=== PATIENT | male | born 1990 | race Caucasian/White ===

== ENCOUNTER 2016-07-11 10:06 | Emergency (ER) | payer SELFPAY ==
--- NOTE | ~2016-07-11 | US113 ---
[facility]. [facility] A Service of [facility] & [facility] RADIOLOGY TEXT RESULTS PATIENT: TONY DAMON LOCATION: SED : [birth year] UNIT #: [id number] AGE: [address]: Ramakrishna Gaytan MD SEX: M ORDER DR: [id number] [address] [id number] MR#: [id number] Acc #: [id number] NAME: TONY DAMON : 1990 SEX: M STUDY DATE/TIME: 07/11/2016 10:54 UNIT: SED ROOM: STUDY DESCRIPTION: US Scrotal Duplex Complete Attending Physician: Ramakrishna Gaytan M.D. Ordering Physician: Ramakrishna Gaytan M.D. Primary Care Physician: Primary Care Physician No MEDICAL IMAGING REPORT This report is preliminary unless electronic signature is present. EXAM Scrotal ultrasound. Date is 07/11/2016. HISTORY Testicular pain 5-hour ago. More pain with walking and standing. FINDINGS Real-time ultrasonography of the scrotal contents performed. Jimenez-scale, color Doppler, Doppler pulse-wave interrogation utilized. Right testis measures 3.28 cm x 2.06 cm x 5.04 cm. Normal in contour and echotexture. No mass lesion. Arterial and venous flow seen in the right testis. Right epididymal head shows small cyst measuring 4.4 mm x 3.9 mm x 2.3 mm. Trace fluid right hemiscrotum. The left testis measures 3.40 cm x 2.00 cm x 5.28 cm. Normal in contour and echotexture with no mass lesion seen. Trace fluid left hemiscrotum. The left epididymis contains small cyst measuring up to 2.7 mm in maximum diameter. Ultrasonography of the bilateral inguinal canal regions is unremarkable. IMPRESSION 1. Testes are normal in appearance. Arterial and venous flow in the bilateral testes. 2. Small epididymal head cysts bilaterally. See measurements above. 3. Trace amount of fluid in the bilateral hemiscrotum. 4. Bilateral inguinal canal region is sonographically unremarkable. 1. Dictated by... Cabrera Suh M.D. THIS IS AN ELECTRONICALLY VERIFIED REPORT Cabrera Suh M.D. at 07/12/2016 2:37 PM Peter [facility]. [facility] A Service of [facility] & [facility] RADIOLOGY TEXT RESULTS PATIENT: TNOY DAMON LOCATION: [facility] : [birth year] UNIT #: [id number] AGE: [address]: Ramakrishna Gaytan MD SEX: M ORDER DR: TD: 07/11/2016 13:48 JOB #: [id number] MEDICAL IMAGING REPORT Page 1 of 1
[~2016-07-11 10:06] MED LIST: CIPRO PO; CYMBALTA30 MG PO; ERYTHROMYCIN O3.5 GM OD; NO MEDICATIONS; PENICILLIN PO; VOLTAREN75 MG PO
[2016-07-11 10:19] LABS: URINE SOURCE CLEAN CATCH
[2016-07-11 10:22] LABS: URINE APPEARANCE CLEAR; URINE BILIRUBIN NEG (NEG); URINE BLOOD NEG (NEG); URINE COLOR YELLOW; URINE GLUCOSE NEG (NORM); URINE KETONE NEG (NEG); URINE LEUKOCYTE ESTERASE NEG (NEG); URINE NITRATE NEG (NEG); URINE PH 5.5 (5-8); URINE PROTEIN NEG (NEG); URINE SPECIFIC GRAVITY 1.025 (1.003-1.035); URINE UROBILINOGEN 0.2 MG/DL (NORM)
[2016-07-11 10:23] LABS: MICRO INDICATED? NO
== END 2016-07-11 12:55 | disposition home or self-care (01) ==
LOC: SED 10:06
PROVIDERS: Emergency Medicine
DX: S39.013A Strain of muscle, fascia and tendon of pelvis, initial encounter (principal); N50.82 Scrotal pain; Z79.899 Other long term (current) drug therapy; F17.210 Nicotine dependence, cigarettes, uncomplicated; W22.8XXA Striking against or struck by other objects, initial encounter
CPT/HCPCS: 81003; 99284